=== PATIENT | female | born 1970 | race Caucasian/White ===

== ENCOUNTER → 2024-03-21 06:28 | Day surgery (SDC) | payer OTHER, SELFPAY | LOC: GI 06:28 | PROVIDERS: ATTENDING PHYSICIAN Internal Medicine Gastroenterology | DX: K51.00 Ulcerative (chronic) pancolitis without complications (principal); D12.3 Benign neoplasm of transverse colon; K64.0 First degree hemorrhoids | CPT/HCPCS: 45380; 88305 ==